=== PATIENT | female | born 1985 | race Caucasian/White ===

== ENCOUNTER → 2023-06-21 11:15 | Outpatient (BNV) | payer OTHER, SELFPAY | PROVIDERS: Visit Provider Psychiatry & Neurology Psychiatry | DX: F32.2 Major depressive disorder, single episode, severe without psychotic features (principal) | CPT/HCPCS: 90792; 99213 ==

== ENCOUNTER 2023-07-03 11:00 | Outpatient (RCR) | payer OTHER, SELFPAY ==
[2023-06-20 11:24] VITALS: BP 124/88; PULSE 80; TEMP 36.9
[2023-06-20 11:28] VITALS: BMI 39.8
--- NOTE | 2023-06-20 11:56 | PC.ADMIT ---
Patient is a 38 year old female who is a single mother of an 8 year old son. She was referred to [facility] by her therapist as patient has been struggling with increased depression and anxiety with passive thoughts of not wanting to be awake and feels she is unable to do life. She reports struggling with poor concentration, decreased energy. She reports trauma history and one in patient behavioral health hospitalization 10 years ago. She reports using Marijuana all day every day to cope with how she is feeling and would like to decrease her use. She currently presents with depressed mood and affect. Passive SI however denied any plans or intent to kill herself. Patient stated, I'm thinking about not wanting to be here . Hopeless feeling, I can't stand it anymore . Patient is calm and cooperative and engaged during the assessment. She has been on a medical leave from work since March 2023 d/t depression. I gave Ymuiko a copy of her safety plan if needed and I reviewed the plan with her. Medications reconciled with patient and her pharmacy. She reports taking medications as prescribed.
--- NOTE | 2023-06-20 16:33 | HO.PHP ---
Clients case was reviewed and opened today in treatment team.
--- NOTE | 2023-06-21 10:43 | HO.PS.ADMBH ---
[facility] Date of Service: 06/21/23 Chief Complaint: MDD,PATRICIA Sources of Information: patient interviewed, chart reviewed and crisis/core team assessment reviewed HPI Healthcare Proxy: No Guardianship: No Medical Problems Affecting Mental Status: No Narrative: Yumiko is a 38-year-old white, , employed open (on [employer]) is, mother of an 8-year-old son who lives with her. She has a longstanding history of depression, anxiety and a lot of feelings and views about the ?unbearable? state of the world. These feelings have been much worse in the past 6 months when she started having more irritability, anger, Complete chewable interactions with family and colleagues at work. She works in the [employer]. She also has history of chronic suicidal ideations but no attempts. She does have some self-destructive behaviors, pinching, hitting self. She did have some problems with alcohol but stopped 8 years ago but uses marijuana daily. She is currently on Wellbutrin XL 300 mg for the past 5 years and Effexor XR 225 mg for 2 years. She denies any side effects. She states that the medications have been helpful to her. She sees a therapist at [facility] and a psychiatrist at [facility]. She lives with her son Past Psychiatric History: Outpatient [facility] Medical History (Updated 06/21/23 @ 10:50 by Adolfo Rosas MD) No known health problems Narrative: No active disease Narrative: None Family History: Positive for depression/anxiety, ADHD on both sides Social History: She is the only child from her biological parents but has to have siblings on her mother side and 1 on her father side. Her parents got and when she was to when her father left for another woman. She denies any history of abuse growing up. She did finish high school and some college, enough for an associate's degree which she never achieved. She was for 1 year and they have a child but the father is not involved in the care of Substance History: Their son. Alcohol abuse which ended 8 years ago. Marijuana use daily. Trauma History: None Diagnostics Vital Signs (24Hr): Vital Signs - 24 hr 06/20/23 11:24 Temperature 98.4 F Pulse Rate 80 Blood Pressure 124/88 BMI result Body Mass Index 39.8 Meds/Allergies Meds Home Medications Medication Instructions Recorded Confirmed Type bupropion HCl 300 mg 24 hr tablet, 300 mg PO DAILY 06/20/23 06/20/23 History extended release venlafaxine 150 mg 150 mg PO DAILY 06/20/23 06/20/23 History capsule,extended release 24 hr venlafaxine 75 mg capsule,extended 75 mg PO DAILY 06/20/23 06/20/23 History release 24 hr Allergies Allergies Allergy/AdvReac Type Severity Reaction Status Date / Time No Known Allergies Allergy Verified 06/20/23 11:29 Mental Status Exam Mental Status Exam Narrative: In today's visit she is alert, oriented and well kempt. Speech is normal. Good eye contact. Affect is appropriate and varied. No signs of psychosis. No overt depression. She denies any current active suicidal or homicidal ideations. Cognitively is intact. Judgment is intact Assessment & Plan Assessment & Plan (1) Major depress dis, severe: Status: Acute Code(s): F32.2 - Major depressive disorder, single episode, severe without psychotic features Plan Continue current to medications. Continue with partial hospital program Patient educated on: diagnosis, medication risk/benefits and substance abuse Certification I certify that partial hospital treatment is medically necessary due to the symptoms and problems resulting from the patient's mental illness and the failure to treat the patient at the partial hospital level of care would likely result in the patient requiring inpatient psychiatric care which could not be prevented at a less intensive level of care. Time Spent With Patient Time: Total time managing care of this patient today ____ minutes.
--- NOTE | 2023-06-25 16:28 | HO.PHP ---
PHP staff followed up with Yumiko after group one and her making a comment around not wanting to be here in this world. PHP staff explored to see if Yumiko had a plan or intent. Yumiko disclosed she does not and would never do that to her son. PHP staff was receptive.
--- NOTE | 2023-06-27 16:17 | HO.PHP ---
PHP staff followed up with Yumiko after the second group to see how she was doing since the first group seemed to be challenging. Yumiko disclosed that she wasn't expecting to relate and for those feelings to emerge. Yumiko disclosed she was uncertain to why those emotions came up. PHP staff acknowledged that groups can bring up alot of feelings and sometimes that can be overwhelming. Yumiko talked about her past relationships and how that affected her and feeling as though a majority of men are not good people. PHP staff encouraged her to explore further with her OP therapist why those feelings may be coming up for her. Yumiko was receptive and stated she thinks it has to do with her childhood. PHP staff was receptive. PHP staff explored with Yumiko if there were any safety concerns. Yumiko presented no concerns and mentioned she is doing okay now.
--- NOTE | 2023-07-03 10:53 | HO.PHPPROGNO ---
Subjective Subjective Date of Service: 07/03/23 Reason For Visit: MDD,PATRICIA Healthcare Proxy: No Guardianship: No Medical Problems Affecting Mental Status: No Interim History: encounter in the context of the patient being discharged from program today. Overall reports getting a good sense of community from the partial hospital program. Reports her mood has improved and that her depression scale score was 18 when she started the program and is now 13. No concerns regarding sleep energy or appetite. Future oriented. No thoughts of . Happy with current medication regimen and will continue this through her prescriber at [facility] and also therapist through [facility] counseling services. Medication Compliance: Yes Side effects from medications: No Attending Groups: Yes Review of Systems Acute medical concerns: No Review of Systems Review of Systems Yes all other systems are reviewed and are negative Mental Status Exam Mental Status Exam Narrative: Pleasant. Engaged. Organized. Euthymic. No SI. No HI. No agitation. No psychosis. Insight and judgment fair Diagnostics Vital Signs (24Hr): BMI result Body Mass Index 39.8 Assessment & Plan Assessment & Plan (1) Major depress dis, severe: Status: Acute Code(s): F32.2 - Major depressive disorder, single episode, severe without psychotic features Assessment and Plan: Stable and doing well from medication perspective. Has gained from partial hospital program from a mood perspective and stable for discharge. Has follow-ups in the community established and does not need any medication prescriptions. Patient educated on: therapeutic strategies Informed Consent: understands Reason for contiued partial hosp. stay Substantial Risk for: stable for discharge Certification I certify that partial hospital treatment is medically necessary due to the symptoms and problems resulting from the patient's mental illness and the failure to treat the patient at the partial hospital level of care would likely result in the patient requiring inpatient psychiatric care which could not be prevented at a less intensive level of care. Total time managing care of this patient today _20___ minutes. Discharge Plan Discharge Attending provider: Larry Edmonds Medications: No Action venlafaxine 75 mg capsule,extended release 24hr 75 mg PO DAILY venlafaxine 150 mg capsule,extended release 24hr 150 mg PO DAILY bupropion HCl 300 mg tablet extended release 24 hr 300 mg PO DAILY Stand Alone Forms: Patient Portal Discharge page Patient Education: Depression (DC) Telehealth Telehealth Location of provider rendering services: other [facility] Location of patient: other (php) Telehealth method: video Patient verbally consented to treatment: Yes Minutes spent on Phone/Video with Pt.: 10
== END 2023-07-03 23:59 | disposition home or self-care (01) ==
LOC: HO.PHPA 11:00
PROVIDERS: Visit Provider Psychiatry & Neurology Psychiatry
DX: F32.2 Major depressive disorder, single episode, severe without psychotic features (principal); Z79.899 Other long term (current) drug therapy
CPT/HCPCS: 90791; 90853